=== PATIENT | male | born 1995 | race Caucasian/White ===

== ENCOUNTER 2020-09-16 22:23 | Emergency (ER) | payer OTHER, SELFPAY ==
[2020-09-16 22:24] VITALS: BP 150/81; PULSE 85; RESP 16; TEMP 36.8; O2SAT 100; BMI 36.2
[2020-09-16] MEDS: predniSONE 20 MG Tablet 60 MG PO (22:49)
[2020-09-16] MEDS: Famotidine 20 MG Tablet PO (22:49)
[2020-09-16 23:32] VITALS: BP 124/67; PULSE 66; RESP 19; O2SAT 98
--- NOTE | 2020-09-16 23:34 | EX.ED.DYSGE1 ---
HPI History of Present Illness Chief Complaint: Allergic Reaction Informant: patient and parent Narrative Narrative: Patient presents with some itching after bee sting. Had a bee sting on his left hand. He got some very mild itching. No dyspnea. No swelling of the tongue. He had some redness of his right ear. He was given Benadryl and he is feeling better. He has never had anaphylactic or severe reaction. Nothing really made this worse. Benadryl did make it better. PFSH PFSH Home Medications NK 05/07/17 [History Last Taken Unknown] prednisone 60 mg PO DAILY #15 tab 09/16/20 [Rx Last Taken Unknown] Allergy/AdvReac Type Severity Reaction Status Date / Time amphetamine [From Adderall] Allergy Mild unknown Verified 09/16/20 22:26 dextroamphetamine Allergy Mild unknown Verified 05/07/17 13:23 [From Adderall] Surgical History History of tonsillectomy Social History (Updated 05/07/17 @ 15:04 by Tylor JONES, ROBERT) Smoking Status: Never smoker alcohol intake: never ROS ROS ED Constitutional Constitutional ED: Denies chills or fever(s) Eyes Eyes: Denies blurry vision ENT ENT ED: Denies rhinorrhea or sore throat Cardiovascular Cardiovascular: Denies chest pain or palpitations Respiratory/Chest Respiratory/Chest: Denies cough or dyspnea Gastrointestinal Gastrointestinal: Denies abdominal pain, diarrhea, nausea or vomiting Musculoskeletal Musculoskeletal: Denies arthralgias or myalgias Integumentary Reports other Details: See history of present illness. Neurologic Neurologic: Denies headache(s) Psychiatric Psychiatric: Denies anxiety or depression Allergic/Immunologic Allergic/Immunologic ED: Denies urticaria EXAM Physical Exam Const Vital Signs: 09/16/20 22:24 09/16/20 23:32 Temperature 98.3 F Temperature Source Oral Pulse Rate 85 66 Respiratory Rate 16 19 H Blood Pressure 150/81 H 124/67 H Blood Pressure Mean 104 86 Pulse Ox 100 98 Oxygen Delivery Method Room Air Room Air Positive well nourished and well developed General Appearance ED: well developed and NAD; Negative for cyanotic or diaphoretic HEENT Reports moist mucous membranes HEENT Narrative: No erythema or swelling of lips or tongues. There is some erythema the right ear but no swelling. Negative for trauma or tenderness Eyes PERRL and EOMs intact bilaterally Neck supple Chest Wall inspection of chest normal Resp normal respiratory effort and clear to auscultation bilaterally Auscultation: Negative for wheezes Cardio regular rate and regular rhythm GI normal to inspection, nondistended, normoactive bowel sounds and non-tender Palpation: soft Back/Spine no CVA tenderness Extremity normal to inspection Neuro oriented x3 Sensorium / Orientation: alert Psych mental status grossly normal Skin Skin Narrative: Patient has a bit of erythema around his staying on his left hand. I see no remaining stinger. I do not see hives or diffuse rash. MDM MDM MDM Narrative Medical decision making narrative: Patient's been rechecked here. He is a little sleepy from the Benadryl but other than that he has no complaints. He has no symptoms now. I do not think this patient needs an EpiPen. He never had any significant reaction. What reaction and symptoms he had was resolved with oral Benadryl. I will place him on steroids. He will use [id number] Benadryl or Claritin and also Pepcid. We discussed reasons to return. Discharge Plan Triage Chief Complaint: Allergic Reaction ED Provider: Harvey Bejarano Dx/Rx/DC Orders Instructions: ED BEE STING General Allergic Rxn Prescriptions: New prednisone 20 mg tablet 60 mg PO DAILY Qty: 15 RF: 0 No Action NK RF: 0 Primary Care Provider: Shamar Siegel III Referrals: Shaamr Siegel III, MD [Primary Care Provider] - Disposition Disposition: Home, Self Care
[2020-09-17 00:07] VITALS: BP 126/67; PULSE 64; RESP 18; O2SAT 94
== END 2020-09-17 00:08 | disposition home or self-care (01) ==
PROVIDERS: Emergency Provider Emergency Medicine; PCP Family Medicine
DX: T63.441A Toxic effect of venom of bees, accidental (unintentional), initial encounter (principal); L29.8 Other pruritus; Y92.9 Unspecified place or not applicable
CPT/HCPCS: 99283; A4216

== ENCOUNTER 2025-02-07 17:26 | Emergency (ER) | payer OTHER, SELFPAY ==
[2025-02-07] VITALS (13 sets, daily range): BP systolic 123–147; BP diastolic 72–130; PULSE 70–222; RESP 11–24; TEMP 36.1; O2SAT 98–100; BMI 33.5
--- NOTE | 2025-02-07 17:26 | EKG12_ITS ---
Test Reason : HIGH HR Blood Pressure : */* mmHG Vent. Rate : 218 BPM Atrial Rate : * BPM P-R Int : * ms QRS Dur : 74 ms QT Int : 200 ms P-R-T Axes : * 93 -77 degrees QTcB Int : 381 ms Critical Test Result: High HR Supraventricular tachycardia Rightward axis Abnormal ECG Confirmed by HERI CHRISTIANSON, SANDRITA ([id number]), dictionary editor JULIETA FINNEGAN ([id number]) on 02/10/2025 8:54:39 AM Referred By: BEVERLY/BUSHRA Confirmed By: SANDRITA LIRIANO MD
--- NOTE | 2025-02-07 17:42 | RAD_ITS ---
PROCEDURE: CHEST PA AND LATERAL 02/07/2025 REASON FOR EXAM: SVT TECHNIQUE: Procedure Code: RADCXR Modality: DX Procedure: CHEST PA AND LATERAL COMPARISON: None. FINDINGS: Lungs/Pleura: Clear. Heart/Mediastinum: Normal in size. Bones/Soft tissues: Unremarkable. RAD/Chest PA and Lateral IMPRESSION: No acute cardiopulmonary disease. Reading Location: [id number]
--- NOTE | 2025-02-07 17:42 | EKG12_ITS ---
Test Reason : RHYTHM CONVERSION Blood Pressure : */* mmHG Vent. Rate : 97 BPM Atrial Rate : 97 BPM P-R Int : 134 ms QRS Dur : 84 ms QT Int : 330 ms P-R-T Axes : 44 70 -2 degrees QTcB Int : 419 ms Normal sinus rhythm Abnormal QRS-T angle, consider primary T wave abnormality Abnormal ECG Confirmed by HERI CHRISTIANSON, SANDRITA ([id number]), loan expeditor JULIETA FINNEGAN ([id number]) on 02/10/2025 8:54:10 AM Referred By: Confirmed By: SANDRITA LIRIANO MD
--- NOTE | 2025-02-07 17:54 | EX.ED.DYSGE1 ---
HPI History of Present Illness Chief Complaint: Palpitations Narrative Narrative: Chief complaint and HPI: 29-year-old male with no significant past medical history who presents for evaluation of palpitations. Patient states he intermittently experiences palpitations in which he takes deep breaths and they resolved. He has never seen a physician for this. Patient states he was at work breaking up some wood chips when the palpitations began. States he could not resolve the palpitations on his own which is why presents to the emergency department. He denies any fever, chills, shortness of breath, chest pain abdominal pain, nausea, vomiting. Review of systems: See HPI Medications: As listed on the chart Allergies: As listed on the chart PFSH: Per chart Vital signs: As listed on the chart. Reviewed. Physical exam: Gen: A&O x3, NAD Head: Normocephalic, atraumatic Eyes: No sclera icterus, conjunctiva clear ENT: Moist mucous membranes Neck: Trachea midline, No JVD CV: Tachycardic, regular rhythm, no murmurs, no peripheral edema Resp: Lungs CTA BL, no w/r/c GI: Abd soft, non-distended, non-tender, no r/r/g Musc: Full ROM, no deformity Skin: Warm, dry Psych: Cooperative, appropriate mood and affect PFSH PFS Home Medications ?Medication ?Instructions ?Recorded ?Last Taken ?Type NK 05/07/17 Unknown History Allergy/AdvReac Type Severity Reaction Status Date / Time amphetamine (From Adderall) Allergy Mild unknown Verified 02/07/25 17:40 dextroamphetamine (From Allergy Mild unknown Verified 02/07/25 17:40 Adderall) Surgical History History of tonsillectomy Social History (Updated 05/07/17 @ 15:04 by ROBERT Ji) Smoking Status: Never smoker alcohol intake: never EXAM Physical Exam Const Vital Signs: 02/07/25 17:26 02/07/25 17:27 02/07/25 17:39 Temperature 97.0 F L Temperature Source Temporal Pulse Rate 222 H Respiratory Rate 20 H Respiratory Pattern Normal Blood Pressure 146/85 H Blood Pressure Mean 105 Pulse Ox 100 Oxygen Delivery Method Room Air 02/07/25 17:40 02/07/25 18:49 02/07/25 19:07 Temperature Temperature Source Pulse Rate 88 94 95 Respiratory Rate 11 L 24 H Respiratory Pattern Blood Pressure 146/85 H 142/81 H 128/76 H Blood Pressure Mean 105 101 93 Pulse Ox 98 100 Oxygen Delivery Method Room Air 02/07/25 19:31 02/07/25 19:45 02/07/25 20:00 Temperature Temperature Source Pulse Rate 70 Respiratory Rate 14 Respiratory Pattern Blood Pressure 123/76 H 133/84 H Blood Pressure Mean 90 99 Pulse Ox 100 99 98 Oxygen Delivery Method Room Air 02/07/25 20:15 Temperature Temperature Source Pulse Rate Respiratory Rate Respiratory Pattern Blood Pressure Blood Pressure Mean Pulse Ox 98 Oxygen Delivery Method MDM MDM MDM Narrative Medical decision making narrative: 29-year-old male with no significant past medical history who presents for evaluation of palpitations. Patient states he intermittently experiences palpitations in which he takes deep breaths and they resolved. He has never seen a physician for this. Patient states he was at work breaking up some wood chips when the palpitations began. States he could not resolve the palpitations on his own which is why presents to the emergency department. He denies any chest pain or shortness of breath. On presentation, patient is tachycardic into the 200s. EKG shows SVT. We were able to perform vagal maneuvers with leg rate test and blowing through a syringe. Patient converted to normal sinus rhythm. Adenosine was not needed to be given. NS bolus ordered. Will continue to monitor heart rate. Differential diagnosis includes but is not limited to arrhythmia, electrolyte abnormality, dehydration, thyroid disease. CBC with mild leukocytosis 11.6. No anemia. Platelets unremarkable. D-dimer unremarkable. BMP unremarkable. Magnesium unremarkable. TSH unremarkable. BNP unremarkable. Original troponin unremarkable. Repeat troponin 38. Patient not having chest pain. I do feel that this is likely in response to his previous SVT. However given elevated troponin with nonspecific ST changes, I did consult cardiology. I spoke with Dr. Costa. Cam for patient to discharge home. Elevated troponin likely secondary to previous elevated heart rate. Reviewed the EKG personally, agree that changes are nonspecific. No WPW. Recommended patient be placed on 25 mg of metoprolol and follow-up in this office. Patient was updated of the plan and the results. He confirmed understanding of plan. Return precautions explained. EKG: Interpreted by me/EM physician: EKG shows SVT with a heart rate of 218. Nonspecific ST changes. Normal QTc. Repeat EKG shows normal sinus rhythm. Nonspecific T wave abnormalities. Heart rate 97. Diagnostic: Interpreted by me/EM physician: Chest x-ray without pneumonia, effusion, cardiomegaly, pneumothorax. Impression: 1. SVT, cardioverted to normal sinus rhythm with vagal maneuvers Lab Data Labs: Laboratory Results - last 24 hr 02/07/25 02/07/25 17:33 19:29 WBC 11.6 H RBC 5.34 Hgb 16.4 Hct 47.0 MCV 88.0 MCH 30.7 MCHC 34.9 RDW Std Deviation 38.5 RDW Coeff of Hitesh 12.0 Plt Count 450 MPV 10.9 Immature Gran % (Auto) 0.300 Neut % (Auto) 45.8 L Lymph % (Auto) 39.8 Riley % (Auto) 11.0 H Eos % (Auto) 2.1 Baso % (Auto) 1.0 Absolute Neuts (auto) 5.3 Absolute Lymphs (auto) 4.60 H Nucleated RBC % 0 D-Dimer Quant (PE/DVT) < 0.27 L Sodium 139 Potassium 3.5 Chloride 101 Carbon Dioxide 25.1 Anion Gap 13 BUN 10 Creatinine 1.03 Estim Creat Clear Calc 139.21 Est GFR (MDRD) Non-Af 102 BUN/Creatinine Ratio 9.7 L Glucose 96 Calcium 9.8 Magnesium 2.0 Troponin T High Sens 17 Troponin T Hi Sens 2 Hr 38 H NT pro BNP II < 36 TSH 3.620 Radiography Diagnostic Testing: Clinical Impression(s) from Imaging Studies Chest X-Ray 02/07/25 17:42 IMPRESSION: No acute cardiopulmonary disease. Reading Location: [id number] Discharge Plan Triage Chief Complaint: Palpitations ED Provider: Cortes Rodrigues Dx/Rx/DC Orders Prescriptions: No Action NK Primary Care Provider: Care Physician,No Primary Referrals: NOT,DEFINED [Non-Staff, None] Print Language: Danish
[2025-02-07 18:07] LABS: Hematocrit 47.0 % (40-54); Hemoglobin 16.4 g/dL (13.0-16.5); Immature Granulocytes Count 0.030 X10^3/uL (0.0-0.0); Mean Corp Hgb Conc 34.9 g/dL (32-36); Mean Corpuscular Volume 88.0 fL (80-94); Mean Platelet Vol. 10.9 fl (6.2-12.0); NRBC Flagged by Analyzer 0 % (0-5); Platelet Count 450 K/mm3 (150-450); RBC Distribution Width CV 12.0 % (11.6-14.6); RBC Distribution Width SD 38.5 fl (35.1-43.9); Red Blood Count 5.34 M/mm3 (4.6-6.2); White Blood Count 11.6 K/mm3 (4.4-11.0)
[2025-02-07] MEDS: 0.9% Normal Saline (1000mL) 1,000 ML 999 ML IV (18:13)
--- OUTSIDE RECORDS SUMMARY | 2025-02-07 18:26 | XMS RPT_ITS | CCD ---
Author Organization [facility] [employer] [facility] Results Test Name Value Interpretation Reference Range Facil ity Emergency Department Summary on 09-17-2020 Emergency Department Summary [facility] Medical Records Department [address] [place] [address] Emergency Department Summary 09/16/20 MR#: [id number] Acct: [id number] Name: MIGUEL DOYLE Rep #: [id number] : 1995 24 From: Harvey Bejarano MD PCP: Dr. Shamar Siegel III, MD Status:REG ER Location: ED HPI History of Present Illness Chief Complaint: Allergic Reaction Informant: patient and parent Narrative Narrative: Patient presents with some itching after bee sting. Had a bee sting on his left hand. He got some very mild itching. No dyspnea. No swelling of the tongue. He had some redness of his right ear. He was given Benadryl and he is feeling better. He has never had anaphylactic or severe reaction. Nothing really made this worse. Benadryl did make it better. PFSH PFSH Home Medications NK 05/07/17 [History Last Taken Unknown] prednisone 60 mg PO DAILY #15 tab 09/16/20 [Rx Last Taken Unknown] Allergy/AdvReac Type Severity Reaction Status Date / Time amphetamine [From Adderall] Allergy Mild unknown Verified 09/16/20 22:26 dextroamphetamine Allergy Mild unknown Verified 05/07/17 13:23 [From Adderall] Surgical History History of tonsillectomy Social History (Updated 05/07/17 @ 15:04 by Tylor JONES, PA) Smoking Status: Never smoker alcohol intake: never ROS ROS ED Constitutional Constitutional ED: Denies chills or fever(s) Eyes Eyes: Denies blurry vision ENT ENT ED: Denies rhinorrhea or sore throat Cardiovascular Cardiovascular: Denies chest pain or palpitations Respiratory/Chest Respiratory/Chest: Denies cough or dyspnea Gastrointestinal Gastrointestinal: Denies abdominal pain, diarrhea, nausea or vomiting Musculoskeletal Musculoskeletal: Denies arthralgias or myalgias Integumentary Reports other Details: See history of present illness. Neurologic Neurologic: Denies headache(s) Psychiatric Psychiatric: Denies anxiety or depression Allergic/Immunologic Allergic/Immunologic ED: Denies urticaria EXAM Physical Exam Const Vital Signs: 09/16/20 22:24 09/16/20 23:32 Temperature 98.3 F Temperature Source Oral Pulse Rate 85 66 Respiratory Rate 16 19 H Blood Pressure 150/81 H 124/67 H Blood Pressure Mean 104 86 Pulse Ox 100 98 Oxygen Delivery Method Room Air Room Air Positive well nourished and well developed General Appearance ED: well developed and NAD; Negative for cyanotic or diaphoretic HEENT Reports moist mucous membranes HEENT Narrative: No erythema or swelling of lips or tongues. There is some erythema the right ear but no swelling. Negative for trauma or tenderness Eyes PERRL and EOMs intact bilaterally Neck supple Chest Wall inspection of chest normal Resp normal respiratory effort and clear to auscultation bilaterally Auscultation: Negative for wheezes Cardio regular rate and regular rhythm GI normal to inspection, nondistended, normoactive bowel sounds and non-tender Palpation: soft Back/Spine no CVA tenderness Extremity normal to inspection Neuro oriented x3 Sensorium / Orientation: alert Psych mental status grossly normal Skin Skin Narrative: Patient has a bit of erythema around his staying on his left hand. I see no remaining stinger. I do not see hives or diffuse rash. MDM MDM MDM Narrative Medical decision making narrative: Patient's been rechecked here. He is a little sleepy from the Benadryl but other than that he has no complaints. He has no symptoms now. I do not think this patient needs an EpiPen. He never had any significant reaction. What reaction and symptoms he had was resolved with oral Benadryl. I will place him on steroids. He will use [id number] Benadryl or Claritin and also Pepcid. We discussed reasons to return. Discharge Plan Triage Chief Complaint: Allergic Reaction ED Provider: Harvey Bejarano Dx/Rx/DC Orders Instructions: ED BEE STING General Allergic Rxn Prescriptions: New prednisone 20 mg tablet 60 mg PO DAILY Qty: 15 RF: 0 No Action NK RF: 0 Primary Care Provider: Shamar Siegel III Referrals: Shamar Siegel III, MD [Primary Care Provider] - Disposition Disposition: Home, Self Care What to do if you have Problems For any increased pain, shortness of breath, bleeding, nausea or vomiting, chest pain, or any unexpected problems, contact your Primary Care Provider. Call [facility] ([phone]) or report to the closest Emergency Room. Call 911 if necessary. 09/16/20 [id number] Cosigner Signature (if applicable): CC: Dr. Shamar Siegel III, MD Signed Normal [facility] Summary Purpose Family History No Family History Records Found Advance Directives No Advanced Directives Records Found Additional Source Comments (unrecognized sect ion and content) No Status Records Found INFORMATION SOURCE (unrecogn ized section and content) DATE CREATED AUTHOR 09/20/2020 [facility] FOR RECORDS PERTAINING TO PATIENTS WHO ARE OR HAVE BEEN ENROLLED IN A CHEMICAL DEPENDENCY/SUBSTANCEABUSE PROGRAM, SOME INFORMATION MAY BE OMITTED. This clinical summary was aggregated from multiple sources. Caution should be exercised in using it in the provision of clinical care. This summary normalizes information from multiple sources, and as a consequence, information in this document may materially change the coding, format and clinical context of patient data. In addition, data may be omitted in some cases. CLINICAL DECISIONS SHOULD BE BASED ON THE PRIMARY CLINICAL RECORDS. [employer] [facility]. provides no warranty or guarantee of the accuracy or completeness of information in this document.
[2025-02-07 18:30] LABS: Anion Gap 13 (5-15); BUN 10 mg/dL (4-19); BUN/Creat Ratio 9.7 RATIO (10-20); Calcium,Total 9.8 mg/dL (7.6-11.0); Carbon Dioxide 25.1 mmol/L (21.0-32.0); Chloride 101 mmol/L (98-108); Estimated Creatinine Clearance 139.21 ml/min (50-250); Glucose 96 mg/dL (70-99); Magnesium 2.0 mg/dL (1.5-2.2); Potassium 3.5 mmol/L (3.3-5.1); Pro- Brain NATRIURETIC PEPTIDE < 36 pg/mL (<=450); Troponin T High Sensitivity 17 ng/L (<=22)
[2025-02-07 18:46] LABS: D-Dimer Quantitative (DVT/PE) < 0.27 FEU/ug/m (0.27-0.49)
--- NOTE | 2025-02-07 20:16 | CM.ED ---
Social Work Reason for visit: No PCP Patient verified that he does not currently have a PCP. [facility] provider list and long with [facility] brochure given to patient. No further needs at this time. Letty Leach, DENTURE PACKER, TOURING PRODUCTION MANAGER
[2025-02-07 20:25] LABS: Troponin T High Sens 2 HR 38 ng/L (<=22)
== END 2025-02-07 21:21 | disposition home or self-care (01) ==
PROVIDERS: Emergency Provider Surgery; Visit Provider Surgery
DX: I47.10 Supraventricular tachycardia, unspecified (principal)
CPT/HCPCS: 71046; 80048; 83735; 83880; 84443; 84484; 85025; 85379; 93005; 96360; 99284; A4216; J0153